=== PATIENT | female | born 1940 ===

== ENCOUNTER 2021-11-21 12:30 | Inpatient (IN) | payer OTHER ==
[~2021-11-21] VITALS: Ht 162.6 cm; Wt 61.2 kg
[2021-11-21] MEDS ORDERED: SINGULAIR 10MG10 MG PO (14:46)
[2021-11-21] MEDS ORDERED: D3 + K2 DOTS 11 EACH PO (14:46)
[2021-11-21] MEDS ORDERED: SIMVASTATIN40 MG PO (14:46)
[2021-11-21] MEDS ORDERED: ZOLOFT100 MG PO (14:46)
[2021-11-21] MEDS ORDERED: CALTRATE 600 +1 EACH PO (14:47)
[2021-11-21] MEDS ORDERED: OMEGA-31000 MG PO (14:47)
[2021-11-22] MEDS ORDERED: ATORVASTATIN CA40 MG (16:26)
[2021-11-22] MEDS ORDERED: PROAIR HFA8.5 GM (16:26)
[2021-11-22] MEDS ORDERED: ENALAPRIL MALE2.5 MG (16:26)
== END 2021-11-24 13:49 | disposition home or self-care (01) | DRG 743 ==
LOC: O/R 11-22 09:33 → OB/GYN 11-22 09:33
PROVIDERS: ADMIT Specialist; ATTEND Specialist
PROC: 0UT70ZZ Resection of Bilateral Fallopian Tubes, Open Approach (ICD-10-PCS; 2021-11-22)
PROC: 0UT20ZZ Resection of Bilateral Ovaries, Open Approach (ICD-10-PCS; 2021-11-22)
PROC: 0UB00ZZ Excision of Right Ovary, Open Approach (ICD-10-PCS; 2021-11-22)
PROC: 0UT90ZZ Resection of Uterus, Open Approach (ICD-10-PCS; principal; 2021-11-22 21:15)
DX: D27.0 Benign neoplasm of right ovary (principal); N72 Inflammatory disease of cervix uteri; Z20.822 Contact with and (suspected) exposure to COVID-19